=== PATIENT | female | born 1995 | race Caucasian/White ===

== ENCOUNTER → 2017-10-11 | Outpatient (CLI) | payer OTHER ==
[~2017-10-11] MED LIST: OMEG-96 PO; PREN-127 PO
--- NOTE | 2017-10-11 14:59 | RADIOLOGY IMAGING REPORT ---
FACILITY: [facility] PATIENT NAME: Carley Cevallos : 1995 MR: [id number] V: [id number] EXAM DATE: ORDERING PHYSICIAN: JAROD QURESHI TECHNOLOGIST: Location: [facility] [place] Patient: Carley Cevallos : 1995 Visit/Account:[id number] Date of Sevice: 10/11/2017 OB ANATOMICAL SURVEY HISTORY: 20 weeks screening COMPARISON: None. TECHNIQUE: Transabdominal imaging was performed for assessment of the fetus and maternal pelvic s tructures. Transvaginal imaging was not performed. FINDINGS: Intrauterine gestations: One. presentation: On the initial images the fetus was in vertex presentation although by technologi st notation the fetus was in variable presentation throughout the examination. heart rate: 144 bpm. Amniotic fluid volume: Normal; BINH 14.7 cm; MVP 5.8 cm. Placenta: Anterior and fundal. Uterus: Gravid, otherwise grossly unremarkable where visualized. Maternal adnexa/ovaries: Grossly unremarkable, ovaries not visualized. Cervix: Grossly long and closed. Gestational Parameters: BPD: 4.98 cm and is in the 64th percentile HC: 18.7 cm and is in the 55th percentile AC: 15.39 cm and is in the 39th percentile FL: 3.25 cm and is in the 22nd percentile Average ultrasound age (AUA): 20 weeks/ six days Estimated age based on LMP: 20 weeks/ five and is in the 32nd percentile days Estimated weight (EFW): 356 grams +/- 52 grams Anatomic Survey: Intracranial structures, 4-chamber heart, stomach, kidneys, urinary bladder, spine, 3-vessel cord and cord insertion are unremarkable. Two upper and two lower extremities visualized. IMPRESSION: Single viable fetus in viable presentation with an estimated gestational age by measurements of 20 we eks and six days. The estimated weight is 356 g +/- 52 g Report Dictated By: Lisa Balderas MD at 10/11/2017 1:34 PM Report E-Signed By: Lisa Balderas MD at 10/11/2017 2:53 PM WSN:[email or web address]
== END ==
LOC: RAD 08:47
PROVIDERS: ATTEND Student in an Organized Health Care Education/Training Program
DX: Z02.9 Encounter for administrative examinations, unspecified (principal)

== ENCOUNTER → 2017-12-03 | Outpatient (CLI) | payer OTHER ==
[~2017-12-03] MED LIST changes: +DIPH0.5D12 IM
[2017-12-03 10:23] LABS: PLATELET COUNT, AUTOMATED 189 K/uL (150-450)
== END ==
LOC: LAB 09:22
PROVIDERS: ATTEND Student in an Organized Health Care Education/Training Program
DX: Z34.92 Encounter for supervision of normal pregnancy, unspecified, second trimester (principal)
CPT/HCPCS: 36415; 82950; 85025

== ENCOUNTER → 2018-01-28 | Outpatient (CLI) | payer OTHER ==
[~2018-01-28] MED LIST changes: +FLU60SYR36 IM
== END ==
LOC: LAB 10:34
PROVIDERS: ATTEND Student in an Organized Health Care Education/Training Program
DX: Z34.93 Encounter for supervision of normal pregnancy, unspecified, third trimester (principal)
CPT/HCPCS: 87081

== ENCOUNTER → 2018-01-28 | Outpatient (CLI) | payer OTHER | LOC: LAB 10:08 | PROVIDERS: ATTEND Obstetrics & Gynecology | DX: Z02.9 Encounter for administrative examinations, unspecified (principal) ==

== ENCOUNTER 2018-02-24 19:57 | Inpatient (IN) | payer OTHER ==
[~2018-02-24] VITALS: Ht 167.6 cm; Wt 81.6 kg
[2018-02-24] MEDS ORDERED: ceFAZolin(*) 2GM/D5W 50ML 50 ML IVPB PRN (19:58)
[2018-02-24] MEDS ORDERED: FAMOTIDINE(*) 20MG/50ML PREMIX 50 ML IVPB PRN (19:58)
[2018-02-24] MEDS ORDERED: DINOPROSTONE 10 MG INSERT PV ONE (20:00)
[2018-02-24] MEDS ORDERED: ACETAMINOPHEN 325 MG TAB PO PRN (20:00)
[2018-02-24] MEDS ORDERED: LIDOCAINE 1% LOCAL 300 MG/30ML INJ PRN (20:00)
[2018-02-24] MEDS ORDERED: METOCLOPRAMIDE 10 MG/2 ML SDV IVP PRN (20:00)
[2018-02-24] MEDS ORDERED: ZOLPIDEM TARTRATE 5 MG TAB PO PRN (20:00)
[2018-02-24 20:40] VITALS: BP 164/104; Ht 167.6 cm; Wt 81.6 kg
[2018-02-24] MEDS ORDERED: ceFAZolin(*) 2GM/D5W 50ML 50 ML IVPB ONE (21:00)
[2018-02-24 21:18] LABS: PLATELET COUNT, AUTOMATED 166 K/uL (150-450)
[2018-02-24] MEDS: LR(*) 1000 ML BAG 1,000 ML IV PRN (21:30)
[2018-02-24] MEDS ORDERED: OXYTOCIN 30 UNIT/D5LR 500 ML 500 ML IV PRN (21:48)
[2018-02-24] MEDS ORDERED: ONDANSETRON 4 MG/2 ML VIAL IVP PRN (21:50)
[2018-02-24] MEDS ORDERED: CALCIUM CARBONATE 500 MG CHEW PO PRN (21:50)
[2018-02-25] MEDS: fentaNYL CITR 100 MCG/2 ML AMP IVP PRN ×3 (02:42→10:49)
[2018-02-25] MEDS ORDERED: fentaNYL CITR 100 MCG/2 ML AMP IT PRN (04:25)
[2018-02-25] MEDS ORDERED: BUPIVACAINE 0.25% MPF INJ EPI PRN (04:25)
[2018-02-25] MEDS ORDERED: FENTANYL/ROPIVACAINE 100 ML BAG EPI PRN (04:25)
[2018-02-25] MEDS ORDERED: EPIDURAL KEYS XX PRN (04:25)
[2018-02-25] MEDS ORDERED: LIDO/EPI 2% MPF 1:200,000 20ML EPI PRN (04:25)
[2018-02-25] MEDS ORDERED: LIDOCAINE/PF 2% 200MG/10ML AMP 200 MG/10 ML AMPUL EPI PRN (04:25)
[2018-02-25] MEDS: ceFAZolin(*) 1 GM VIAL 1 GM in NS(*) 0.9% 100 ML ADDVANT BAG 100 ML IV SCH ×2 (04:57→13:11)
[2018-02-25] MEDS ORDERED: OXYTOCIN 30 UNIT/D5LR 500 ML 500 ML IV PRN (08:28)
[2018-02-25] MEDS ORDERED: TERBUTALINE SULF 1 MG/ML VIAL SUBQ PRN (08:30)
[2018-02-25] MEDS: LR(*) 1000 ML BAG 1,000 ML IV PRN ×2 (11:54→13:11)
--- NOTE | 2018-02-25 13:25 | Anesthesia OB Pre-Anes Eval ---
History of Present Illness Anesthesia Start Date: Feb 25, 2018 Anesthesia Start Time: 12:00 OB Anesthesia Diagnosis: induction - elective Current Complication: gestational hypertention Complications: None known EDC: Feb 23, 2018 : 1 Para: 0 Vital Signs: Vital Signs Date Time Temp Pulse Resp B/P (MAP) Pulse Ox O2 Delivery O2 Flow Rate FiO2 02/24/18 20:40 98.4 72 15 164/104 (124) 97 Room Air Pain Ratin Heart Tones: WNL Result Diagram: 02/24/18 2105 Height (Inches): 66.00 Weight (Pounds): 180 BMI Calculated: 29.05 Past Medical History Medical History: no pertinent history Surgical History: no surgical history, other (wisdom teeth) Previous Anesthesia: other (IV sedation) Attended Childbirth Classes?: No Hx Anesthesia Reactions: No Hx Family Anesthesia Reaction: No Current Medications: pitocin, pain medication (Fentenyl) Home Meds Reported Medications Vits W-Ca,Fe,Fa(<1MG) ( VITAMINS) 1 Each Tablet, 1 EACH PO DAILY, TAB 10/02/17 Allergies: Coded Allergies: amoxicillin (Unverified Allergy, Unknown, unknown, 10/02/17) cefaclor (Unverified Allergy, Unknown, unknown, 10/02/17) Anesthesia OB ROS Neurological: other; No migraines/headaches, No seizures, No neuropathy ENT: Denies Tooth caps, Denies Loose teeth, Denies Chipped teeth, Denies Dentures, Denies Bridges, Denies Retainers, Denies Veneers, Denies Implants, Denies Tongue ring Pulmonary: No asthma, No smoker (pks/day/yrs) Airway Class: ll Cardiovascular ROS: No edema, No arrhythmia GI ROS: clear liquids Last Solids Date: Feb 25, 2018 Last Solids Time: 08:00 ROS: No Herpes, No STD(s), No Liver Disease, No Renal Disease Endocrine ROS: No diabetes, No gestational diabetes, No thyroid disorder Musculoskeletal ROS: No low back pain, No low back injury, No scoliosis ASA Classification: 2 Assessment and Plan Anesthesia Plan: CSE Assessment Past Medical, Surgical, Family and Obstetric Histories reviewed. Please see ACOG chart. Epidural anesthesia risks, complications and benefits explained to patient's satisfaction for labor and vaginal delivery and/or section. General anesthesia risks and benefits explained to patient's satisfaction. Questions invited, none asked. LAWRENCE VELASCO CRNA Feb 25, 2018 13:25
--- NOTE | 2018-02-25 13:33 | Procedure Note ---
Anesthetic Placement Note Anesthesia Plan: CSE Permit for Anesthesia Signed: Yes Anesthesia Technique: Patient Sitting Anesthesia Prep: Chlorhexidine Interspace: L 2-3 Local Anesthetic: 1% Lidocaine, 25 Gauge Needle Amount Local - cc's: 2 Anesthesia Needle: 17g Touhy/Schliff Anesthesia Attempts: 2 Loss of Resistance: Air Depth of TITA (cm): 6 Epidural Needle Placement: No CSF, No Blood, No Parasthesia Intrathecal Needle: 27 Gauge Pencan Cerebral Spinal Fluid: Yes, Clear Catheter Insertion (cm): 9 Epidural Dressing: Tegaderm, Tape, Adhesive [place] Anesthesia Tray: Lot Number ([id number]), Expiration Date (2019-02-03), Reference Number ([id number]) Comment: Unable to locate Epidural space at L3-4. Local repeated at L2-3. Good TITA and epidural space easily noted. Catheter threaded easily after intrathecal medication was given. Pt. had more than normal amount of bleeding from first puncture site, pressure applied. Anesthesia Medications: Intrathecal Dose: mcg Fentanyl (15), mg Marcaine MPF (1.75), Time (1229) Epidural Test Dose: 1.5 Lido/Epi (1:200,000), Dose - mL (3), Time (1254), Negative Epidural Loading Dose: 0.2% Ropivicaine, With Fentanyl 2mcg/ml, Dose - ml (5), Time (1255) Epidural Infusion: 0.2% Ropivicaine, With Fentanyl 2mcg/ml, Start Time: (1255) Epidural Pump Setting: Bolus Dose - mL (5), Lockout - Minutes (20), Maintenance Rate - mL/hr (6), Maximum per Hour - mL (21) Complications: None Comment: Pt. became comfortable within 5 minutes after intrathecal medication. LAWRENCE VELASCO CRNA Feb 25, 2018 13:33
[2018-02-25] MEDS ORDERED: BUPIVACAINE 0.5% INJ 30ML VIAL ONE (14:23)
--- NOTE | 2018-02-25 14:26 | Anesthesia Progress Note ---
Progress/Maintenance Anesthesia Note Date: Feb 25, 2018 Anesthesia Note Time: 14:20 Pain Intensity: 5 Pump: On Pump Rate (ML/HR): 6 Sensory Level: T-12 Motor Level: Bending Knees-Bilateral Dilatation: 10 Position: Left, Tilt Drug Bolus: 0.5% Marcaine (3 ml), Other (Fentenyl 85 mcgs) Assessment and Plan Anesthesia Plan: CSE Assessment Pt. states she is feeling more on her left side, becoming stronger. Manual bolus given which pt. felt improvment within 3 minutes. LAWRENCE VELASCO CRNA Feb 25, 2018 14:26
--- NOTE | 2018-02-25 15:29 | Anesthesia Progress Note ---
Progress/Maintenance Anesthesia Note Date: Feb 25, 2018 Anesthesia Note Time: 15:15 Pain Intensity: 0 Pump: Off Sensory Level: T-12 Motor Level: Bending Knees-Bilateral, Other (rt leg heavy) Dilatation: 10 Position: Semi-Fowlers Assessment and Plan Assessment No further medication given. Pt. was able to push very well and had excellent tolerance of delivery and repair work Empty syringe attached to epidural tatiana ter and RN agrees to remove with ambulation. Patient instructed the first ambulation is to be with help of nursing staff. Instructed to preform deep knee bends at bedside before walking. Anesthesia Stop Day: Feb 25, 2018 Anesthesia Stop Time: 15:15 LAWRENCE VELASCO CRNA Feb 25, 2018 15:29
[2018-02-25] MEDS ORDERED: MAGNESIUM HYDROXIDE* 30ML UDCP PO PRN (15:40)
[2018-02-25] MEDS ORDERED: HYDROCORTISONE 2.5% CR 30GM TB PR PRN (15:40)
[2018-02-25] MEDS ORDERED: APAP/HYDROCODONE 325/5 TAB PO PRN (15:40)
[2018-02-25] MEDS ORDERED: BENZOCAINE 20% 60 ML BTL TP PRN (15:40)
[2018-02-25] MEDS ORDERED: LANOLIN OINT 7 GM TUBE TP PRN (15:40)
[2018-02-25] MEDS ORDERED: GLYCERIN/WITCH HAZEL LEAF 1 PK TP PRN (15:40)
[2018-02-25] MEDS ORDERED: ACETAMINOPHEN 325 MG TAB PO PRN (15:40)
[2018-02-25] MEDS: IBUPROFEN 800 MG TAB PO SCH (16:49)
--- NOTE | 2018-02-25 17:11 | History & Physical ---
History of Present Illness Age of Patient: 23 : 1 Para or TPAL: 0 EDC per LMP: Feb 23, 2018 Estimated Gestational Age: 40.2 Chief Complaint Induction History of Present Illness (LATE ENTRY): Pt is a 23 y/o @ 40-2/7 weeks gestation who presents to L&D for a scheduled IOL. Pt today denies any complaints good movement. No vaginal Bleeding. Contractions from medications given overnight. History Patient's Blood Type: A Positive Rubella Status: Immune Group B Strep Screen: Positive Obstetrical History: LYNN of 02/23 Past Medical History: Non contributory Allergies: Coded Allergies: amoxicillin (Unverified Allergy, Unknown, unknown, 10/02/17) cefaclor (Unverified Allergy, Unknown, unknown, 10/02/17) Social History: Aleksandar is . Denies X 3. Family History: FH: diabetes mellitus MGM FH: melanoma PGM Med Rec Home Meds Reported Medications Vits W-Ca,Fe,Fa(<1MG) ( VITAMINS) 1 Each Tablet, 1 EACH PO DAILY, TAB 10/02/17 Review of Systems All Systems Reviewed/Normal: Yes, Except as Noted Constitutional: No Fever, No Weight Loss, No Weight Gain, No Chills, No Night Sweats, No Other Neurological: No Syncope, No Confusion, No Weakness, No Dizziness, No Slurred Speech, No Other Eyes: No Vision Change, No Loss of Vision, No Photophobia, No Other ENT: No Hearing Loss, No Sinus Congestion, No Sore Throat, No Ear Ache, No Tinnitus, No Other Cardiovascular: No Chest Pain, No Palpitations, No Orthostatic Hypotension, No Other Respiratory: No Shortness of Breath, No Cough, No Wheezing, No Other Gastrointestinal: No Nausea, No Vomiting, No Diarrhea, No Dysphagia, No Co nstipation, No Early Satiety, No Hematemesis, No Hematochezia, No Melena, No Abdominal Pain, No Other Genitourinary: No Dysuria, No Hematuria, No Urinary Incontinence, No Other Musculoskeletal: No Pain, No Sprain, No Strain, No Impaired Mobility, No Other Psychiatric: No Depression, No Anxiety, No Other Exam General Exam Vital Signs Vital Signs Date Time Temp Pulse Resp B/P (MAP) Pulse Ox O2 Delivery O2 Flow Rate FiO2 02/24/18 20:40 98.4 72 15 164/104 (124) 97 Room Air General Apperance: Alert/Awake/No Acute Distress Neuro: No Gross deficits Eyes: Normal Extraocular Movement & Vison ENT: Normal Cardiovascular: Regular Rate and Rhythm Respiratory: No Respiratory Distress, Clear to Auscultation Abdomen: Soft, Non-Tender, Non-Distended : Normal Musculoskeletal: No Weakness/Pain Extremities: No Cyanosis,Clubbing or Edema Integumentary: Skin Intact without Lesions or Rash Psychological: Alert & Oriented X3, Appropriate Mood & Affect Vaginal Discharge/Fluid?: Bloody Show Cervical Dialation: 3 Cervical Effacement (%): 60 Cervical Consistency: Soft Cervical Position: Anterior Station: -2 Presentation: Vertex Uterine Contractions(Q min): 4 Uterine Contraction Strength: Moderate UC Resting Tone: Soft Fetus Feeling Movement?: Yes Estimated Weight(grams): 3000 Heart Tone Variabilty: Moderate FHT Accelerations: 15X15 FHT Decelerations: None FHT Category: I Medical Decision Making Data Points Result Diagram: 02/24/182104 Pre-Admit Course Medical Record Review: Yes VTE Prophylasis: Adult Deep Vein Thrombosis/Pulmonary: No 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 Pt to get oxytocin and rupture once contractions get closer. Expect . (2) Elective induction of labor planned JAROD QURESHI DO Feb 25, 2018 17:11
--- NOTE | 2018-02-25 17:13 | Labor Progress Note ---
Labor Subjective Progress Notes Subjective LATE ENTRY: Pt comfortable s/p epidural. Denies any complaints at this time. Vaginal Discharge/Fluid: Bloody Show Labor Pain: Mild Neurological: No Headache, No Other Eyes: No Visual Disturbances Labor Objective Vital Signs Vital Signs Date Time Temp Pulse Resp B/P (MAP) Pulse Ox O2 Delivery O2 Flow Rate FiO2 02/24/18 20:40 98.4 72 15 164/104 (124) 97 Room Air Vaginal Discharge/Fluid?: Bloody Show, Clear Fluid (with amniotomy) Cervical Dialation: 4 Cervical Effacement (%): 80 Cervical Consistency: Soft Cervical Position: Anterior Station: -2 Presentation: Vertex Uterine Contractions(Q min): 2 Uterine Contraction Strength: Moderate UC Resting Tone: Soft Fetus Heart Tone Variabilty: Moderate FHT Accelerations: 15X15 FHT Decelerations: Variable FHT Category: II Other Result Diagram: 02/24/182104 Assessment and Plan Problems: (1) 40 weeks gestation of Assessment & Plan: S/P amniotomy. Expect . Will continue position changes to see if this helps with variables. If not will consider amnioinfusion. (2) Elective induction of labor planned JAROD QURESHI DO Feb 25, 2018 17:13
--- NOTE | 2018-02-25 17:21 | OB Delivery Note ---
Delivery Note Vaginal Delivery Type: Spont. Vaginal Delivery Delivery Date: Feb 25, 2018 Delivery Time: 14:59 Estimated Gestational Age(wks): 40.2 Length of Labor Stage I (hrs): 8 Length of Labor Stage II (hrs): 0.15 Labor Stage III (minutes): 9 Delivery Anesthesia: Epidural Infant Sex: Male Weight (gms): 2765 (6#2oz) Apgars: 1 Minute (8), 5 Minute (9) Repair Needed: 2nd Degree Estimated Blood Loss: 500 Dictionary Editor in Attendence: JAROD Luna DO Feb 25, 2018 17:21
[2018-02-25 19:44] VITALS: BP 130/85
[2018-02-26] MEDS: DOCUSATE CALCIUM 240 MG CAP PO SCH ×3 (00:13→22:32)
[2018-02-26 00:15] VITALS: BP 142/75
[2018-02-26] MEDS: IBUPROFEN 800 MG TAB PO SCH ×3 (01:00→17:39)
--- NOTE | 2018-02-26 03:39 | DELIVERY NOTE ---
DELIVERY DATE: February 25, 2018 SURGEON: Tobias Chung DO ANESTHESIA: Epidural. PREOPERATIVE DIAGNOSES 1. A 23-year-old 1, para 0, at 40-2/7 weeks' gestation. 2. Induction of labor. POSTOPERATIVE DIAGNOSES 1. A 23-year-old 1, para 0, at 40-2/7 weeks' gestation. 2. Induction of labor. 3. Delivered. PROCEDURE Spontaneous vaginal delivery with repair of second-degree midline laceration. FINDINGS Liveborn male infant at 1459 with Apgars of 8 and 9, weighing 2765 g (6 pounds 2 ounces); three-vessel cord; intact placenta over second-degree midline laceration. ESTIMATED BLOOD LOSS 500 mL. PATHOLOGY None. COMPLICATIONS None known. CONDITION Stable x2. Mother and infant to remain in LDRP. COUNTS Correct x2 for all needles, laps, sponges, and instruments. LABOR SUMMARY Patient is a 23-year-old 1, para 0, who presented to Labor and Delivery for an elective induction of labor at 40-1/7 weeks' gestation. The patient initially received Cervidil overnight for a 1 cm cervix. She did progress to 2 cm, was started on oxytocin. Patient progressed to 3, underwent amniotomy with clear fluid, received an epidural. She did have some variable decelerations secondary to a quick-changing cervix. These were decreased with position changes and maternal O2 and IV fluids. Patient continued to progress and eventually was noted to be complete and +2 staiton. After a few trial pushes, the delivery team was called and assembled. DELIVERY SUMMARY Patient was placed in the dorsal lithotomy position, prepped and draped in the usual manner. Upon maternal pushing, the infant's head delivered in a controlled manner, followed by the anterior shoulder with gentle downward motion and the posterior shoulder with gentle upward motion. The remainder of the infant's body delivered spontaneously. Mouth and nose were bulb-suctioned. The cord was clamped x2 after approximately three minutes post delivery, with no longer pulsing cord, secondary to maternal request. Cord was cut by infant's father. The baby remained on maternal chest for the remainder of the procedure. Cord blood gas was obtained. Placenta delivered spontaneously with gentle cord traction. Oxytocin was infused to help with uterine tone. Uterine massage until firm. Upon inspection of the perineum, vagina, cervix, and labia, it was noted that there was a second-degree midline laceration. This was repaired in the usual manner. The laceration was inspected and found to be hemostatic. At this point, the patient was cleaned, labor bed was reassembled, and the mother and were allowed to continue to acuña. ERNESTO
[2018-02-26 04:30] VITALS: BP 123/74
--- NOTE | 2018-02-26 08:50 | OB/GYN Progress Note ---
OB Subjective Progress Notes Subjective Doing good this morning. Pain controlled with PO pain medications, occasionally [place]. Lochia appropriate. with out any difficulty. Voiding with out any difficulty. Tolerating regular diet. GI: NEG Nausea, NEG Vomiting, NEG Flatus, NEG Bowel Movement : Voiding Well, Vaginal Bleeding, Scant Pain: Mild, Tolerating PO Pain Meds Neurological: No Headache, No Other Eyes: No Visual Disturbances OB Objective Physical Exam Vital Signs Date Time Temp Pulse Resp B/P (MAP) Pulse Ox O2 Delivery O2 Flow Rate FiO2 02/26/18 04:30 98.0 62 18 123/74 (90) 94 02/25/18 19:44 Room Air Intake and Output 02/26/18 07:00 Intake Total 3200 ml Output Total 1450 ml Balance 1750 ml Intake IV Total 3200 ml Output Urine Total 1450 ml # Voids 1 General Appearance: Alert/Awake/No Acute Distress Neurological: No Gross deficits Eyes: Normal Extraocular Movement & Vison Cardiovascular: Normal Rhythm & Peripheral Pulses, Regular Rate and Rhythm Respiratory: No Respiratory Distress, Clear to Auscultation Abdomen: Soft, Non-Tender, Non-Distended, Fundus Firm Extremities: No Cyanosis,Clubbing or Edema Integumentary: Skin Intact without Lesions or Rash Psychological: Alert & Oriented X3, Appropriate Mood & Affect Result Diagram: 02/26/18617 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 Will prep for discharge in the event patient desires d/c today. Follow up in 2-3 weeks. (2) Elective induction of labor planned JAORD QURESHI DO Feb 26, 2018 08:50
[2018-02-26] MEDS ORDERED: IBUP800T37 PO (08:52)
[2018-02-26] MEDS ORDERED: LOR5/325 PO (08:52)
--- NOTE | 2018-02-26 08:55 | OB/GYN Discharge Summary ---
Discharge Summary Reason for Hosp/Final Diag: (1) 40 weeks gestation of Status: Resolved Hospital Course & Plan: Pt presented for a scheduled IOL. Underwent IOL without any problems. Quickly got to complete and delivered with out any difficulty. See delivery note for details of procedure. Pt remained in the hospital for her post care and management. She was meeting post goals and desired to be discharged home. (2) Elective induction of labor planned Status: Resolved Lates Vital Signs Vital Signs Date Time Temp Pulse Resp B/P (MAP) Pulse Ox O2 Delivery O2 Flow Rate FiO2 02/26/18 04:30 98.0 62 18 123/74 (90) 94 02/25/18 19:44 Room Air Weight (Pounds): 180 Result Diagram: 02/26/18617 Condition: Improved Discharge: Home Home Meds Active Scripts Ibuprofen (IBUPROFEN) 800 Mg Tablet, 800 MG PO Q8H, #20 TAB 0 Refills Prov:JAROD QURESHI DO 02/26/18 Hydrocodone Bit/Acetaminophen (HYDROCODON-ACETAMINOPHEN 5-325) 1 Each Tablet, 1- 2 EACH PO Q4H PRN for PAIN, #15 TAB 0 Refills Prov:JAROD QURESHI DO 02/26/18 Reported Medications Vits W-Ca,Fe,Fa(<1MG) ( VITAMINS) 1 Each Tablet, 1 EACH PO DAILY, TAB 10/02/17 Follow up with: [facility] [phone], Dr. Qureshi [phone] Follow up in: 2 wks PO Discharge Diet: As Tolerates Discharge Activity: As Tolerates, No Heavy Lifting > 10lb, Pelvic Rest JAROD QURESHI DO Feb 26, 2018 08:55
[2018-02-26 11:25] VITALS: BP 119/81
--- NOTE | 2018-02-26 11:56 | Anesthesia Post Eval Note ---
Anesthesia Post Eval Note Vital Signs Date Time Temp Pulse Resp B/P (MAP) Pulse Ox O2 Delivery O2 Flow Rate FiO2 02/26/18 04:30 98.0 62 18 123/74 (90) 94 02/25/18 19:44 Room Air Pt able to participate in Eval: Yes Cardiovascular Status: Satisfactory Respiratory Status: Satisfactory Pain Managment: Satisfactory PO Nausea/Vomiting: Satisfactory Temperature Management: Satisfactory Mental Status: Satisfactory, Alert, Oriented X3 Post-Op Hydration Status: Satisfactory, Tolerating PO Well, Voiding w/o Difficulty Anesthesia Type: CSE Anesthesia Tolerance: Quarter size bruise noted at puncture site. Pt. states she has mild discomfort at site. Tolerated procedure well without apparent anesthetic complications. LP site clear, no redness or edema. Denies headache or any residual paresthesia. Vital Signs Stable, Patient comfortable and condition stable. LAWRENCE VELASCO CRNA Feb 26, 2018 11:56
[2018-02-26] MEDS ORDERED: ACETAMINOPHEN 500 MG TAB PO PRN (14:45)
[2018-02-26 16:20] VITALS: BP 115/89
[2018-02-26 20:03] VITALS: BP 124/64
[2018-02-27 00:29] VITALS: BP 124/71
[2018-02-27] MEDS: IBUPROFEN 800 MG TAB PO SCH ×2 (00:33→09:06)
[2018-02-27 03:30] VITALS: BP 118/65
[2018-02-27 07:45] VITALS: BP 126/85
[2018-02-27] MEDS ORDERED: INFLUENZA VIRUS VAC 0.5ML SYR IM ONLY ONE (09:00)
[2018-02-27] MEDS ORDERED: MEASLES,MUMP,RUBELLA VAC 0.5ML SUBQ ONE (09:00)
[2018-02-27] MEDS ORDERED: DIPHTH/TETANUS/ACEL. PERTUSSIS IM ONLY ONE (09:00)
[2018-02-27] MEDS: DOCUSATE CALCIUM 240 MG CAP PO SCH (09:06)
--- NOTE | 2018-02-27 12:12 | OB/GYN Progress Note ---
OB Subjective Progress Notes Subjective Pt is day 2 post . Pt reports she is doing much better today. Bleeding appropriate. Tolerating PO intake. Voiding with out any difficulty. Ambulatory. GI: NEG Nausea, NEG Vomiting, NEG Flatus, NEG Bowel Movement : Voiding Well, Vaginal Bleeding, Scant Pain: Mild, Tolerating PO Pain Meds Neurological: No Headache, No Other Eyes: No Visual Disturbances OB Objective Physical Exam Vital Signs Date Time Temp Pulse Resp B/P (MAP) Pulse Ox O2 Delivery O2 Flow Rate FiO2 02/27/18 07:45 Room Air 02/27/18 07:45 97.9 87 16 126/85 (99) 96 Intake and Output 02/27/18 07:00 Intake Total 0 ml Balance 0 ml Intake Oral 0 ml General Appearance: Alert/Awake/No Acute Distress Neurological: No Gross deficits Eyes: Normal Extraocular Movement & Vison Cardiovascular: Normal Rhythm & Peripheral Pulses, Regular Rate and Rhythm Respiratory: No Respiratory Distress, Clear to Auscultation Abdomen: Soft, Non-Tender, Non-Distended, Fundus Firm Extremities: No Cyanosis,Clubbing or Edema Integumentary: Skin Intact without Lesions or Rash Psychological: Alert & Oriented X3, Appropriate Mood & Affect Result Diagram: 02/26/18 0618 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 Bleeding precautions given. (2) Elective induction of labor planned Status: Resolved JAROD QURESHI DO Feb 27, 2018 12:12
== END 2018-02-27 12:00 | disposition home or self-care (01) | DRG 807 ==
LOC: OB 19:57
PROVIDERS: ADMIT Student in an Organized Health Care Education/Training Program; ATTEND Student in an Organized Health Care Education/Training Program
PROC: 3E0P7VZ Introduction of Hormone into Female Reproductive, Via Natural or Artificial Opening (ICD-10-PCS; 2018-02-24)
PROC: 10E0XZZ Delivery of Products of Conception, External Approach (ICD-10-PCS; principal; 2018-02-25)
PROC: 0KQM0ZZ Repair Perineum Muscle, Open Approach (ICD-10-PCS; 2018-02-25)
PROC: 10907ZC Drainage of Amniotic Fluid, Therapeutic from Products of Conception, Via Natural or Artificial Opening (ICD-10-PCS; 2018-02-25)
DX: O99.824 Streptococcus B carrier state complicating childbirth (principal); Z37.0 Single live birth; O13.4 Gestational [pregnancy-induced] hypertension without significant proteinuria, complicating childbirth; O70.1 Second degree perineal laceration during delivery; O76 Abnormality in fetal heart rate and rhythm complicating labor and delivery; Z3A.40 40 weeks gestation of pregnancy
CPT/HCPCS: 36415; 85025; 85027; 86703; 86850; 86900; 86901; J0690; J2590; J3010; J7050; J7120; S0020